=== PATIENT | female | born 1985 | race American Indian/Alaskan Native ===

== ENCOUNTER 2017-07-30 19:47 | Inpatient (IN) | payer SELFPAY ==
[2017-07-30] MEDS ORDERED: TYLENOL PO ONE (20:02)
[2017-07-30 20:16] LABS: Basophils % (Auto) 0.2 % (0.0-1.8); Eosinophils # (Auto) 0.1 K/mm3 (0.0-0.4); Eosinophils % (Auto) 0.4 % (0.0-4.3); Hematocrit 31.1 % (30.3-42.9); Hemoglobin 9.5 gm/dl (10.1-14.3); Lymphocytes # (Auto) 3.4 K/mm3 (1.2-5.4); Lymphocytes % (Auto) 17.3 % (13.4-35.0); Mean Corpuscular HGB Conc 31 % (30-34); Monocytes # (Auto) 1.7 K/mm3 (0.0-0.8); Monocytes % (Auto) 8.7 % (0.0-7.3); Platelet Count 428 K/mm3 (140-440); Red Blood Count 4.48 M/mm3 (3.65-5.03); Red Cell Distribution Width 16.9 % (13.2-15.2)
[2017-07-30 20:18] LABS: Mean Corpuscular Hemoglobin 21 pg (28-32); Mean Corpuscular Volume 70 fl (79-97)
[2017-07-30 20:29] LABS: Alanine Aminotransferase 51 units/L (7-56); Albumin 3.5 g/dL (3.9-5); BUN/Creatinine Ratio 14; Blood Urea Nitrogen 7 mg/dL (7-17); Calcium 8.5 mg/dL (8.4-10.2); Hemolysis Index 0
[2017-07-30] MEDS ORDERED: MORPHINE IV ONE (23:16)
[2017-07-30] MEDS ORDERED: NACL 0.9% 1000 ML 1,000 ML IV ONE (23:16)
[2017-07-30] MEDS ORDERED: CLEOCIN 900 MG/50 mL 900 MG/50 ML BAG IV ONE (23:16)
[2017-07-30] MEDS ORDERED: ZOFRAN IV ONE (23:16)
[2017-07-30] MEDS ORDERED: CLEOCIN 600 MG/50 mL 600 MG/50 ML BAG IV ONE (23:23)
[2017-07-30] MEDS ORDERED: TORADOL IV ONE (23:23)
[2017-07-30] MEDS ORDERED: ZOFRAN ODT PO PRN (23:30)
[2017-07-30] MEDS ORDERED: REGLAN ONE (23:32)
[2017-07-30] MEDS ORDERED: ZOFRAN ODT PO ONE (23:32)
[2017-07-30] MEDS ORDERED: ZOFRAN ODT ONE (23:40)
--- NOTE | 2017-07-31 00:09 | Emergency Department Report ---
ED Abdominal Pain HPI - General Chief Complaint: Abdominal Pain Stated Complaint: ABDOMINAL PAIN/ Source: patient Mode of arrival: Ambulatory Limitations: No Limitations - History of Present Illness Initial Comments: 32-year-old female with no past medical history per previous surgical history including 5 years ago, tubal ligation, and apocrine gland surgery secondary to recurring abscesses presents to the hospital complaining of lower abdominal pain 3 days. Pain worse in the right lower quadrant. Pain is constant, 6/10 intensity and worse with palpation. Patient presents with fever and EEG but denies feeling feverish at home. Good appetite reported without nausea, vomiting, diarrhea. Denies dysuria but having urinary frequency. Severity scale (0 -10): 7 - Related Data Allergies Allergy/AdvReac Type Severity Reaction Status Date / Time Penicillins Allergy Itching Verified 07/31/17 01:49 ED Review of Systems ROS: Stated complaint: ABDOMINAL PAIN/ Other details as noted in HPI Comment: All other systems reviewed and negative Other: Constitutional: as per HPI Eyes: No eye pain visual changes or discharge ENT: No ear pain or throat pain Neck: Denies pain Respiratory: Denies cough wheezing shortness of breath Cardiovascular: Denies chest pain, palpitations, syncope GI: As per HPI : Denies dysuria Musculoskeletal: Denies back pain, joint swelling Skin: Lower abdominal wall swelling Neurologic: Denies headache, numbness, weakness Psychiatric: Denies suicidal ideation, hallucinations ED Past Medical Hx - Past Medical History Previous Medical History?: No - Surgical History Additional Surgical History: c section. Tubal ligation - Social History Smoking Status: Never Smoker Substance Use Type: None ED Physical Exam - General Limitations: No Limitations - Other Other exam information: General: No limitations, patient is alert in no acute distress Head exam: Atraumatic, normocephalic Eyes exam: Normal appearance, pupils equal reactive to light, extraocular movements intact ENT: Moist mucous membrane, normal oropharynx Neck exam: Normal inspection, full range of motion, no meningismus nontender Respiratory exam: Clear to auscultation bilateral, no wheezes, rales, crackles Cardiovascular: Tachycardic regular rhythm Abdomen: Soft, nondistended, suprapubic area erythema, warmth, and subcutaneous edema greatest on the right. Tenderness to palpation. No signs of drainage Extremity: Full range of motion normal inspection no deformity Back: Normal Inspection, full range of motion, no tenderness Neurologic: Alert, oriented x3, cranial nerves intact, no motor or sensory deficit Psychiatric: normal affect, normal mood Skin: See abdominal exam ED Course Vital Signs 07/30/17 07/31/17 19:56 00:00 Temperature 100.8 F H 98.3 F Pulse Rate 135 H 78 Respiratory 18 Rate Blood Pressure 138/90 Blood Pressure 132/74 [Left] O2 Sat by Pulse 98 99 Oximetry - Reevaluation(s) Reevaluation #1: 07/31/17 01:39 Heart rate improves with fever reduction - Consultations Consultation #1: 07/31/17 01:20 case d/w Dr Correa surgery. aggrees to admit and preform procedure in am ED Medical Decision Making - Lab Data Result diagrams: 07/30/17 20:03 07/30/17 20:03 Lab Results 07/30/17 07/30/17 07/30/17 Range/Units 20:03 20:03 23:26 WBC 19.4 H (4.5-11.0) K/mm3 RBC 4.48 (3.65-5.03) M/mm3 Hgb 9.5 L (10.1-14.3) gm/dl Hct 31.1 (30.3-42.9) % MCV 70 L (79-97) fl MCH 21 L (28-32) pg MCHC 31 (30-34) % RDW 16.9 H (13.2-15.2) % Plt Count 428 (140-440) K/mm3 Lymph % (Auto) 17.3 (13.4-35.0) % [place] % (Auto) 8.7 H (0.0-7.3) % Eos % (Auto) 0.4 (0.0-4.3) % Baso % (Auto) 0.2 (0.0-1.8) % Lymph # 3.4 (1.2-5.4) K/mm3 [place] # 1.7 H (0.0-0.8) K/mm3 Eos # 0.1 (0.0-0.4) K/mm3 Baso # 0.0 (0.0-0.1) K/mm3 Seg Neutrophils % 73.4 H (40.0-70.0) % Seg Neutrophils # 14.2 H (1.8-7.7) K/mm3 VBG pH (7.320-7.420) Sodium 137 (137-145) mmol/L Potassium 4.0 (3.6-5.0) mmol/L Chloride 98.8 (98-107) mmol/L Carbon Dioxide 25 (22-30) mmol/L Anion Gap 17 mmol/L BUN 7 (7-17) mg/dL Creatinine 0.5 L (0.7-1.2) mg/dL Estimated GFR > 60 ml/min BUN/Creatinine Ratio 14 % Glucose 94 (65-100) mg/dL Lactic Acid (0.7-2.0) mmol/L Calcium 8.5 (8.4-10.2) mg/dL Total Bilirubin 0.20 (0.1-1.2) mg/dL AST 46 H (5-40) units/L ALT 51 (7-56) units/L Alkaline Phosphatase 97 (35-129) units/L Total Protein 8.4 H (6.3-8.2) g/dL Albumin 3.5 L (3.9-5) g/dL Albumin/Globulin Ratio 0.7 % HCG, Qual Negative (Negative) Urine Color (Yellow) Urine Turbidity (Clear) Urine pH (5.0-7.0) Ur Specific [place] (1.003-1.030) Urine Protein (Negative) mg/dL Urine Glucose (UA) (Negative) mg/dL Urine Ketones (Negative) mg/dL Urine Blood (Negative) Urine Nitrite (Negative) Urine Bilirubin (Negative) Urine Urobilinogen (<2.0) mg/dL Ur Leukocyte Esterase (Negative) Urine WBC (Auto) (0.0-6.0) /HPF Urine RBC (Auto) (0.0-6.0) /HPF U Epithel Cells (Auto) (0-13.0) /HPF Urine Mucus /HPF 07/30/17 07/30/17 07/31/17 Range/Units 23:26 23:26 00:00 WBC (4.5-11.0) K/mm3 RBC (3.65-5.03) M/mm3 Hgb (10.1-14.3) gm/dl Hct (30.3-42.9) % MCV (79-97) fl MCH (28-32) pg MCHC (30-34) % RDW (13.2-15.2) % Plt Count (140-440) K/mm3 Lymph % (Auto) (13.4-35.0) % [place] % (Auto) (0.0-7.3) % Eos % (Auto) (0.0-4.3) % Baso % (Auto) (0.0-1.8) % Lymph # (1.2-5.4) K/mm3 [place] # (0.0-0.8) K/mm3 Eos # (0.0-0.4) K/mm3 Baso # (0.0-0.1) K/mm3 Seg Neutrophils % (40.0-70.0) % Seg Neutrophils # (1.8-7.7) K/mm3 VBG pH 7.450 H (7.320-7.420) Sodium (137-145) mmol/L Potassium (3.6-5.0) mmol/L Chloride (98-107) mmol/L Carbon Dioxide (22-30) mmol/L Anion Gap mmol/L BUN (7-17) mg/dL Creatinine (0.7-1.2) mg/dL Estimated GFR ml/min BUN/Creatinine Ratio % Glucose (65-100) mg/dL Lactic Acid 1.60 (0.7-2.0) mmol/L Calcium (8.4-10.2) mg/dL Total Bilirubin (0.1-1.2) mg/dL AST (5-40) units/L ALT (7-56) units/L Alkaline Phosphatase (35-129) units/L Total Protein (6.3-8.2) g/dL Albumin (3.9-5) g/dL Albumin/Globulin Ratio % HCG, Qual (Negative) Urine Color Yellow (Yellow) Urine Turbidity Hazy (Clear) Urine pH 5.0 (5.0-7.0) Ur Specific [place] 1.035 H (1.003-1.030) Urine Protein 100 mg/dl (Negative) mg/dL Urine Glucose (UA) Neg (Negative) mg/dL Urine Ketones Tr (Negative) mg/dL Urine Blood Lg (Negative) Urine Nitrite Neg (Negative) Urine Bilirubin Neg (Negative) Urine Urobilinogen 2.0 (<2.0) mg/dL Ur Leukocyte Esterase Mod (Negative) Urine WBC (Auto) 37.0 H (0.0-6.0) /HPF Urine RBC (Auto) 106.0 (0.0-6.0) /HPF U Epithel Cells (Auto) 5.0 (0-13.0) /HPF Urine Mucus 1+ /HPF - Radiology Data Radiology results: report reviewed Read by radiologist CT abdomen and pelvis IV contrast: lower anterior right abdominal wall subcutaneous soft tissue fluid collection measuring up to 9 cm x 4.6 by 4 centimeter. May represent a developing abscess. Other differential includes irregular hematoma and seroma. Minimal surrounding cellulitis and soft tissues in the anterior abdominal wall. Multiple enlarged lymph nodes in the groin region bilaterally. Intestinal and urinary tract unremarkable - Medical Decision Making Abdominal wall abscess that needs surgical drainage. Clindamycin initiated Significant leukocytosis but no signs of septic shock UA has blood and white cells, patient is currently on her menstrual cycle Dr correa to admit admit orders placed - Differential Diagnosis cellulitis, abscess, appendicitis, UTI Critical Care Time: No Critical care attestation.: If time is entered above; I have spent that time in minutes in the direct care of this critically ill patient, excluding procedure time. ED Disposition Clinical Impression: Abdominal wall abscess, Leukocytosis, Anemia Disposition: OP ADMIT IP TO THIS HOSP Is pt being admited?: Yes Condition: Stable Time of Disposition: 01:42 (Dr Correa/surgery)
[2017-07-31 00:37] LABS: Bilirubin,Urine NEG (Negative); Blood,Urine LG (Negative); Color,Urine Yellow (Yellow); Mucus,Urine 1+ /HPF
--- NOTE | 2017-07-31 01:03 | Cat Scan Report ---
FINAL REPORT PROCEDURE: CT ABDOMEN PELVIS W CON TECHNIQUE: Computerized axial tomography of the abdomen and pelvis was performed after the IV injection of iodinated nonionic contrast. HISTORY: rlq pain, ? abd wall cellulitis COMPARISON: No prior studies are available for comparison. FINDINGS: Visualized lower thorax: No significant abnormality. Liver: Normal size and attenuation. Spleen: Normal size and attenuation. Gallbladder and biliary system: Normal. Pancreas: Normal. Adrenals: Normal. Kidneys: Normal. GI tract: No obstruction. No ileus or enteritis. The cecum, appendix and colon are normal. Moderate fecal debris in the colon.. Lymph nodes and mesentery: There are multiple enlarged lymph nodes identified in the groin region bilaterally.. Vasculature: Normal. Bladder: Normal. Reproductive organs: Normal. Peritoneum: No free fluid. Musculoskeletal structures: No significant abnormality. Other: Within the anterior abdominal wall subcutaneous soft tissues there is a fluid collection in the lower right pelvic region, this measures 4.6 x 9 by 4 centimeters. There is stranding of the subcutaneous fat surrounding this region. A developing abscess is suspected. Irregular hematoma and seroma are also within the differential. Minimal surrounding cellulitis in the soft tissues... IMPRESSION: Lower anterior right abdominal wall subcutaneous soft tissue fluid collection measuring up to 9 centimeters. This may represent a developing abscess. Irregular hematoma and seroma are also within the differential. There is some minimal surrounding cellulitis in the soft tissues of this region of the anterior abdominal wall. There is no evidence of intestinal or urinary tract obstruction. No ileus or enteritis. Multiple enlarged lymph nodes in the groin region bilaterally.
[2017-07-31] MEDS ORDERED: MORPHINE IV PRN (01:49)
[2017-07-31] MEDS: NACL 0.9% 1000 ML 1,000 ML IV SCH ×2 (04:20→11:48)
[2017-07-31] MEDS: CLEOCIN 600 MG/50 mL 600 MG/50 ML BAG IV SCH ×2 (06:03→14:18)
[2017-07-31] MEDS: LOVENOX SUB-Q SCH (09:30)
[2017-07-31] MEDS ORDERED: LOVENOX SUB-Q SCH (10:00)
--- NOTE | 2017-07-31 10:32 | History and Physical Report ---
History of Present Illness Date of examination: 07/31/17 Date of admission: 07/31/17 01:42 Chief complaint: Abdominal pain History of present illness: 32-year-old female with no significant past medical history presented to the emergency room with complaints of right lower abdominal pain. The pain started 4 days ago. The patient states she noted some swelling in the right lower abdomen and this slowly became worse, tender, and red. The pain is sharp and does not radiate. Using a heating pad helps alleviate the pain mildly. The patient states she's had symptoms like this in the past with superficial abscesses that have required drainage. She believes this may have been caused by working out at the gym and wearing tight elastic pants. She denies drainage from the area. Although she denies fevers or chills at home, she did have a temperature of 100.8 in the emergency room. She denies nausea, vomiting, constipation, diarrhea. Past History Past Medical History: other (subcutaneous abscesses) Past Surgical History: Other (, drainage of subcutaneous abscess) Social history: alcohol abuse (occasional). denies: smoking, prescription drug abuse Family history: CAD, cancer Medications and Allergies Allergies Allergy/AdvReac Type Severity Reaction Status Date / Time Penicillins Allergy Itching Verified 07/31/17 01:49 Active Meds: Active Medications Enoxaparin Sodium (Lovenox) 40 mg SUB-Q QDAY@1000 LANRE Last Admin: 07/31/17 09:30 Dose: 40 mg Clindamycin HCl (Cleocin 600 Mg/50 Ml) 600 mg in 50 mls @ 100 mls/hr IV Q8HR LANRE; Protocol Last Admin: 07/31/17 06:03 Dose: 100 mls/hr Sodium Chloride (Nacl 0.9% 1000 Ml) 1,000 mls @ 125 mls/hr IV DIRECT LANRE Last Admin: 07/31/17 04:20 Dose: 125 mls/hr Morphine Sulfate (Morphine) 4 mg IV Q4HR PRN PRN Reason: Pain Last Admin: 07/31/17 09:31 Dose: 4 mg Review of Systems All systems: negative (10 point review of systems was performed and negative except for above listed in HPI) Exam Vital Signs Temp Pulse BP Pulse Ox 100.8 F H 135 H 138/90 98 07/30/17 19:56 07/30/17 19:56 07/30/17 19:56 07/30/17 19:56 Narrative exam: General: Awake, alert, oriented 3. No apparent distress ENT: No scleral icterus or conjunctival pallor CV: S1, S2 present. No murmurs, rubs, gallops Respiratory: Clear to auscultation bilaterally, no wheezes, rales, rhonchi Abdomen: Soft, nondistended, cellulitis and induration of skin and right lower abdomen. There is fluctuance. Tender to palpation. No drainage. Extremities: No clubbing, cyanosis, edema Results - Labs 07/30/17 20:03 07/30/17 20:03 Abnormal lab results 07/30/17 07/30/17 07/30/17 Range/Units 20:03 20:03 23:26 WBC 19.4 H (4.5-11.0) K/mm3 Hgb 9.5 L (10.1-14.3) gm/dl MCV 70 L (79-97) fl MCH 21 L (28-32) pg RDW 16.9 H (13.2-15.2) % [place] % (Auto) 8.7 H (0.0-7.3) % [place] # 1.7 H (0.0-0.8) K/mm3 Seg Neutrophils % 73.4 H (40.0-70.0) % Seg Neutrophils # 14.2 H (1.8-7.7) K/mm3 VBG pH 7.450 H (7.320-7.420) Creatinine 0.5 L (0.7-1.2) mg/dL AST 46 H (5-40) units/L Total Protein 8.4 H (6.3-8.2) g/dL Albumin 3.5 L (3.9-5) g/dL Ur Specific [place] (1.003-1.030) Urine WBC (Auto) (0.0-6.0) /HPF 07/31/17 Range/Units 00:00 WBC (4.5-11.0) K/mm3 Hgb (10.1-14.3) gm/dl MCV (79-97) fl MCH (28-32) pg RDW (13.2-15.2) % [place] % (Auto) (0.0-7.3) % [place] # (0.0-0.8) K/mm3 Seg Neutrophils % (40.0-70.0) % Seg Neutrophils # (1.8-7.7) K/mm3 VBG pH (7.320-7.420) Creatinine (0.7-1.2) mg/dL AST (5-40) units/L Total Protein (6.3-8.2) g/dL Albumin (3.9-5) g/dL Ur Specific [place] 1.035 H (1.003-1.030) Urine WBC (Auto) 37.0 H (0.0-6.0) /HPF Diabetes panel 07/30/17 Range/Units 20:03 Sodium 137 (137-145) mmol/L Potassium 4.0 (3.6-5.0) mmol/L Chloride 98.8 (98-107) mmol/L Carbon Dioxide 25 (22-30) mmol/L BUN 7 (7-17) mg/dL Creatinine 0.5 L (0.7-1.2) mg/dL Glucose 94 (65-100) mg/dL Calcium 8.5 (8.4-10.2) mg/dL AST 46 H (5-40) units/L ALT 51 (7-56) units/L Alkaline Phosphatase 97 (35-129) units/L Total Protein 8.4 H (6.3-8.2) g/dL Albumin 3.5 L (3.9-5) g/dL Calcium panel 07/30/17 Range/Units 20:03 Calcium 8.5 (8.4-10.2) mg/dL Albumin 3.5 L (3.9-5) g/dL Pituitary panel 07/30/17 Range/Units 20:03 Sodium 137 (137-145) mmol/L Potassium 4.0 (3.6-5.0) mmol/L Chloride 98.8 (98-107) mmol/L Carbon Dioxide 25 (22-30) mmol/L BUN 7 (7-17) mg/dL Creatinine 0.5 L (0.7-1.2) mg/dL Glucose 94 (65-100) mg/dL Calcium 8.5 (8.4-10.2) mg/dL Adrenal panel 07/30/17 Range/Units 20:03 Sodium 137 (137-145) mmol/L Potassium 4.0 (3.6-5.0) mmol/L Chloride 98.8 (98-107) mmol/L Carbon Dioxide 25 (22-30) mmol/L BUN 7 (7-17) mg/dL Creatinine 0.5 L (0.7-1.2) mg/dL Glucose 94 (65-100) mg/dL Calcium 8.5 (8.4-10.2) mg/dL Total Bilirubin 0.20 (0.1-1.2) mg/dL AST 46 H (5-40) units/L ALT 51 (7-56) units/L Alkaline Phosphatase 97 (35-129) units/L Total Protein 8.4 H (6.3-8.2) g/dL Albumin 3.5 L (3.9-5) g/dL - Imaging CT scan - abdomen: report reviewed, image reviewed CT scan - pelvis: report reviewed, image reviewed Assessment and Plan 32-year-old female with 1. Abdominal wall abscess 2. Sepsis secondary to #1 Plan: 1. NPO 2. IVF 3. IV abx - started on clinda in ER 4. PRN Pain control 5. DVT ppx 6. OR today for incision and drainage. All risks and benefits, alternatives to surgery discussed and questions answered. Consent signed and placed on chart.
[2017-07-31] MEDS ORDERED: MARCAINE 0.5% INFILTRATI ONE ×2 (11:18→12:20)
[2017-07-31] MEDS ORDERED: DIPRIVAN 10 MG/ML IV ONE ×2 (11:31→12:21)
[2017-07-31] MEDS ORDERED: XYLOCAINE MPF 2% ONE (11:34)
[2017-07-31] MEDS ORDERED: DILAUDID ONE (11:34)
[2017-07-31] MEDS ORDERED: VERSED ONE (11:35)
--- NOTE | 2017-07-31 11:40 | Anesthesia Day of Surgery ---
Anesthesia Day of Surgery - Day of Surgery Patient Examined: Yes Patient H&P Reviewed: Yes Patient is NPO: Yes
--- NOTE | 2017-07-31 11:40 | Anesthesia Consultation ---
Anesthesia Consult and Med Hx - Airway Anesthetic Teeth Evaluation: Good ROM Head & Neck: Adequate Mental/Hyoid Distance: Adequate Mallampati Class: Class II Intubation Access Assessment: Good - Pulmonary Exam CTA: Yes - Cardiac Exam Cardiac Exam: RRR - Pre-Operative Health Status ASA Pre-Surgery Classification: ASA1 Proposed Anesthetic Plan: MAC - Pulmonary Hx Asthma: No COPD: No Hx Pneumonia: No - Endocrine Hx End Stage Renal Disease: No
[2017-07-31] MEDS ORDERED: ZOFRAN IV PRN (11:41)
[2017-07-31] MEDS ORDERED: NACL 0.9% IR ONE (12:20)
--- NOTE | 2017-07-31 12:48 | Operative Report ---
Operative Report Operative Report: Date of surgery: 07/31/17 Preoperative diagnosis: abdominal wall abscess Postoperative diagnosis: same as above Procedure: incision and drainage of abdominal wall abscess Surgeon: Kirt Correa DO Anesthesia: MAC, local Findings: large amount of pus in superficial abdominal wall abscess. Outer wound measures 2.5 (l)x1.5 (w)x 1.5 (d) cm. Abscess cavity measures 8cm x 4 cm Specimen: cultures EBL: 5cc Complications: none Disposition: stable to PACU HPI and indication: 32 yo F with hx of hidradenitis presented to hospital with lower abdominal wall pain, redness, and swelling. She was found to have an elevated WBC and large abscess on CT A/P. Drainage of abscess of recommended and surgical consent obtained. All risks and benefits were discussed and questions answered. Procedure in detail: Patient was identified in the preoperative area and taken back to the operating room and placed on the operating room table in supine position. After the patient was moved onto the operating room table, there was an area of spontaneous drainage from the abscess at the inferior aspect under the pannus. After anesthesia was induced, the abdomen was prepped and draped in usual sterile fashion and a timeout was performed. Local anesthetic, 0.5% marcaine was infiltrated into the skin in the area of spontaneous drainage inferior aspect of the pannus. This opening was extended cephalad using an 11 blade and there was a large amount of purulent drainage expressed. Cultures were obtained. The abscess cavity was probed with a gloved finger to break up all loculations. Once this abscess cavity was adequately drained, it was measured. The abscess cavity measured 8 cm in width 4 cm in length, 1.5 cm deep. The outer wound measured 2.5 (length) 1.5 (width) 1.5 (Depth). The wound was irrigated copiously with saline solution and hemostasis achieved. The wound was packed with 2 inch iodoform packing, covered with 4 x 4 fluff gauze, ABD, Medipore tape. At the end of the case, all instrument, sharp, sponge counts were correct 2. The patient was awoken from anesthesia and taken to PACU in stable condition.
[2017-07-31] MEDS: DILAUDID IV PRN ×2 (12:55→13:05)
[2017-07-31] MEDS: ULTRAM PO PRN ×2 (14:17→18:32)
--- NOTE | 2017-07-31 17:38 | Post Anesthesia Evaluation ---
- Post Anesthesia Evaluation Patient Participated: Yes Airway Patent: Yes Stable Respiratory Function: Yes Nausea/Vomiting: No Temp > 96.8F: Yes Pain Manageable: Yes Adequeate Hydration: Yes Anesthesia Complications: No Block Receding Appropriately: Not Applicable
[2017-07-31] MEDS ORDERED: TYLENOL PO PRN (22:01)
[2017-08-01] MEDS: DILAUDID IV PRN ×2 (00:09→11:05)
[2017-08-01] MEDS: CLEOCIN 600 MG/50 mL 600 MG/50 ML BAG IV SCH ×3 (00:12→13:44)
[2017-08-01] MEDS: LOVENOX SUB-Q SCH (10:14)
[2017-08-01 12:00] LABS: Basophils # (Auto) 0.1 K/mm3 (0.0-0.1); Basophils % (Auto) 0.6 % (0.0-1.8); Eosinophils # (Auto) 0.2 K/mm3 (0.0-0.4); Eosinophils % (Auto) 1.7 % (0.0-4.3); Hemoglobin 8.4 gm/dl (10.1-14.3); Lymphocytes % (Auto) 20.1 % (13.4-35.0); Mean Corpuscular HGB Conc 30 % (30-34); Monocytes # (Auto) 1.2 K/mm3 (0.0-0.8); Monocytes % (Auto) 7.9 % (0.0-7.3); Platelet Count 373 K/mm3 (140-440); Red Blood Count 4.02 M/mm3 (3.65-5.03)
[2017-08-01 12:05] LABS: Mean Corpuscular Hemoglobin 21 pg (28-32); Mean Corpuscular Volume 70 fl (79-97)
[2017-08-01] MEDS: LACTINEX PO SCH ×2 (13:45→21:30)
[2017-08-01] MEDS ORDERED: DILAUDID IV ONE (14:00)
--- NOTE | 2017-08-01 15:50 | Progress Note ---
Assessment and Plan 32 yo F s/p incision and drainage of abdominal wall abscess POD 1 1. abd wall abscess 2. hidradenitis of mons pubis Plan: 1. prelim cultures reviewed and discussed with Dr. Woody (ID) - dc clinda, start levaquin, vanco, flagyl 2. ID consult 3. reg diet 4. pain control PRN 5. local wound care daily 6. warm compress to mons 7. OOB/ambulate Subjective Date of service: 08/01/17 Narrative: Pt seen and examined. +fever overnight. No other complaints. Pain is controlled. Tolerating diet, no n/v, cp, sob. Objective Vital Signs - 12hr 08/01/17 06:09 Temperature 98.6 F Pulse Rate 103 H Respiratory 18 Rate Blood Pressure 118/79 O2 Sat by Pulse 98 Oximetry - General physical appearance Narrative Exam: Gen: AAOx3. NAD CV: s1, S2+ Resp: even and unlabored Abd: soft, ND, TTP in lower abdomen over wound. Cellulitis and induration have improved. Dressing removed and one piece of iodoform packing removed . Wound is clean without additional purulent drainage or fluctuance. An area of skin breakdown over abscess cavity lateral to surgical wound measures 1 cm, full thickness. Wound cleansed and packed with 1/2 inch iodoform. Covered with 4x4 gauze and coversite dressing. : Hidradenitis of mons - +purulent drainage from small openings in the skin of the mons pubis. - Labs 08/01/17 11:46 07/30/17 20:03
[2017-08-01] MEDS ORDERED: VANCOMYCIN PHARMACY TO DOSE IV SCH (16:00)
[2017-08-01] MEDS ORDERED: VANCOMYCIN/NS 1 GM/250 ML 1 GM/250 ML BAG IV SCH (16:00)
[2017-08-01] MEDS ORDERED: VANCOMYCIN 2,000 MG in NACL 0.9% 500 ML 500 ML IV ONE (17:00)
[2017-08-01] MEDS: LEVAQUIN 500MG/100ML 500 MG/100 ML BAG IV SCH (21:29)
[2017-08-01] MEDS: FLAGYL 500 MG/100 ML 500 MG/100 ML BAG IV SCH (22:29)
[2017-08-01] MEDS: ULTRAM PO PRN (23:18)
[2017-08-02] MEDS: VANCOMYCIN 1,500 MG in NACL 0.9% 500 ML 500 ML IV SCH ×2 (04:08→18:39)
[2017-08-02 06:03] LABS: Basophils # (Auto) 0.1 K/mm3 (0.0-0.1); Basophils % (Auto) 0.5 % (0.0-1.8); Eosinophils # (Auto) 0.3 K/mm3 (0.0-0.4); Eosinophils % (Auto) 2.7 % (0.0-4.3); Hematocrit 26.8 % (30.3-42.9); Lymphocytes # (Auto) 2.4 K/mm3 (1.2-5.4); Lymphocytes % (Auto) 21.6 % (13.4-35.0); Mean Corpuscular HGB Conc 30 % (30-34); Mean Corpuscular Volume 69 fl (79-97); Monocytes # (Auto) 0.9 K/mm3 (0.0-0.8); Monocytes % (Auto) 8.3 % (0.0-7.3); Platelet Count 397 K/mm3 (140-440); Red Blood Count 3.86 M/mm3 (3.65-5.03)
[2017-08-02 06:04] LABS: Mean Corpuscular Hemoglobin 21 pg (28-32)
[2017-08-02] MEDS: FLAGYL 500 MG/100 ML 500 MG/100 ML BAG IV SCH ×3 (06:28→21:01)
[2017-08-02] MEDS: LOVENOX SUB-Q SCH (09:00)
[2017-08-02] MEDS: LACTINEX PO SCH ×2 (09:00→21:01)
[2017-08-02] MEDS ORDERED: DILAUDID IV PRN (11:45)
--- NOTE | 2017-08-02 13:06 | Progress Note ---
Assessment and Plan 32 yo F s/p incision and drainage of abdominal wall abscess POD 2 1. abd wall abscess 2. hidradenitis of mons pubis Plan: 1. cx - beta hemolytic strep - c/w juliann otero flagyl 2. ID consult pending, D/W Dr. Woody - will see patient Thursday 08/03 3. reg diet 4. pain control PRN 5. local wound care daily 6. warm compress to mons, hibiclene shower ordered 7. OOB/ambulate 8. DVT ppx 9. dc planning tomorrow with oral abx Subjective Date of service: 08/02/17 Narrative: Pt seen and examined. c/o pain near surgical wound but controlled with pain meds. No f/c. Objective Vital Signs - 12hr 08/02/17 08:29 Temperature 98.6 F Pulse Rate 98 H Respiratory 18 Rate Blood Pressure 113/74 O2 Sat by Pulse 96 Oximetry - General physical appearance Narrative Exam: Gen: AAOx3. NAD CV: s1, S2+ Resp: even and unlabored Abd: soft, ND, +TTP near surgical wound lower abdomen. Erythema has significantly improved. Mild surrounding induration, no fluctuance. All packing removed. Two openings in wound, wound base is clean and red, no additional drainage. Packed with one piece of 1/2 inch iodoform packing, covered with coversite dressing. : mons induration improving, +purulent drainage from small openings - Labs 08/02/17 05:12 07/30/17 20:03
[2017-08-02] MEDS: LEVAQUIN 500MG/100ML 500 MG/100 ML BAG IV SCH (21:01)
[2017-08-03] MEDS: VANCOMYCIN 1,500 MG in NACL 0.9% 500 ML 500 ML IV SCH (06:00)
[2017-08-03] MEDS: FLAGYL 500 MG/100 ML 500 MG/100 ML BAG IV SCH (06:04)
--- NOTE | 2017-08-03 08:01 | Consultation ---
History of Present Illness - Reason for Consult Consult date: 08/03/17 abdominal wall abscess Requesting physician: ANG YAN - History of Present Illness 32 years old female with history of hidradenitis suppurativa mainly at bilateral axilla, groins and pubic area; admitted on 07/30/17 due to right lower quadrant pain and edema for a week. She was not able to walk due to pain. She noticed some fever 24 hours before admission. Of note, patient has history of multiple upper quadrant hidradenitis flare mainly in bilateral axilla and pubic area. She has never had grafting. She denies history of previous cutaneous MRSA infection. In the emergency room, initial temperature was 100.8, heart rate 135, respiration 20, O2 sat 98, blood pressure 130/90. Initial white count 19. Hemoglobin 9.5. Urinalysis was positive with 37 white blood cells and moderate leukocyte esterase. CT of the abdomen show a nice centimeters fluid collection in the abdominal wall in the right lower quadrant. Microbiology: Blood cultures: 07/30 ngtd Wound cultures: 07/30 Beta hem Strep C Current Antimicrobials: Levaquin 08/01 Vancomycin 08/01 Metronidazole 08/01 Previous Antimicrobials: Past History Past Medical History: other (subcutaneous abscesses, hidradenitis suppurativa) Past Surgical History: Other (, drainage of subcutaneous abscess) Social history: alcohol abuse (occasional). denies: smoking, prescription drug abuse Family history: CAD, cancer Medications and Allergies Allergies Allergy/AdvReac Type Severity Reaction Status Date / Time Penicillins Allergy Itching Verified 07/31/17 01:49 Active Meds: Active Medications Acetaminophen (Tylenol) 650 mg PO Q4H PRN PRN Reason: Fever Last Admin: 08/01/17 00:07 Dose: 650 mg Enoxaparin Sodium (Lovenox) 40 mg SUB-Q QDAY@1000 [facility] Last Admin: 08/02/17 09:00 Dose: 40 mg Hydromorphone HCl (Dilaudid) 0.5 mg IV DAILY PRN PRN Reason: Pain , Severe (7-10) Last Admin: 08/02/17 12:06 Dose: 0.5 mg Levofloxacin/Dextrose (Levaquin 500mg/100ml) 500 mg in 100 mls @ 100 mls/hr IV Q24H LANRE; Protocol Last Admin: 08/02/17 21:01 Dose: 100 mls/hr Metronidazole (Flagyl 500 Mg/100 Ml) 500 mg in 100 mls @ 100 mls/hr IV Q8HR [facility] Last Admin: 08/03/17 06:04 Dose: 100 mls/hr Vancomycin HCl 1,500 mg/ (Sodium Chloride) 515 mls @ 333.333 mls/hr IV Q12H [facility] Last Admin: 08/03/17 06:00 Dose: 333.333 mls/hr Lactobacillus Acidophilus (Lactinex) 1 each PO BID [facility] Last Admin: 08/02/17 21:01 Dose: 1 each Ondansetron HCl (Zofran) 4 mg IV ONCE PRN PRN Reason: Nausea And Vomiting Tramadol HCl (Ultram) 50 mg PO Q4H PRN PRN Reason: Pain, Moderate (4-6) Last Admin: 08/01/17 23:18 Dose: 50 mg Vancomycin HCl (Vancomycin Pharmacy To Dose) 1 each IV PKCONSULT [facility]RE; Protocol Review of Systems All systems: negative (as per HPI rest of 10 point review of systems negative) Physical Examination - Physical Exam Narrative exam: General appearance: Alert in NAD, conversant Eyes: anicteric sclerae, moist conjunctivae; no lid-lag; PERRLA HENT: Atraumatic; oropharynx clear Neck: Trachea midline; supple, no thyromegaly or lymphadenopathy Lungs: CTA, with normal respiratory effort and no intercostal retractions CV: RRR, no murmurs Abdomen: Soft, RLQ with surgical wound covered with dressings Extremities: No peripheral edema or extremity lymphadenopathy Skin: left axilla and honey groin nodular rash with serous drainage Psych: Appropriate affect, alert and oriented to person, place and time. Neuro: alert and oriented x 3. Moving all extermities Lines: No CVL / PICC - Constitutional Vitals: Vital Signs Temp Pulse Resp BP Pulse Ox 99.6 F 89 16 112/72 95 08/03/17 07:23 08/03/17 07:23 08/03/17 07:23 08/03/17 07:23 08/03/17 07:23 Temperature -Last 24 Hours Temperature 99.6 F Temperature 100.1 F Temperature 100.1 F Temperature 99.1 F Temperature 98.6 F Results - Labs CBC & Chem 7: 08/02/17 05:12 07/30/17 20:03 Assessment and Plan Assessment: 1) Sepsis: Present on admission, manifested by fever, tachycardia, leukocytosis. Etiology most likely RLQ abdominal wall abscess +/- UTI. 2) RLQ abdominal wall abscess in the setting of hidradenitis: -CT of the abdomen show a nice centimeters fluid collection in the abdominal wall in the right lower quadrant. -S/P OR I+D on 07/31 - findings: large amount of pus -Cultures + Beta hem Strep C 3) UTI: Non-complicated. 4) History of hidradenitis suppurativa: mainly at bilateral axilla, groins and pubic area, currently with active lesions on left axilla and honey groins. 5) Penicillin allergy 6) Anemia Plan: -stop flagyl and vancomycin -continue levaquin -add doxycycline (for antibacterial and antiinflammatory efects on patients with hidradenitis -monitor fever -plastic surgery referral as an outpatient for evaluation of hidradenitis -upon discharge will do clindamycin 300 mg po TID and doxycycline 100 mg po q12h total 10 days until 08/09 Thank you for your consultation, will follow up with you. Autumn Constantino MD Infectious Diseases Specialist [facility] ([facility] M [phone] O [phone]
[2017-08-03] MEDS: LACTINEX PO SCH ×2 (09:11→22:19)
[2017-08-03] MEDS: LOVENOX SUB-Q SCH (09:12)
[2017-08-03] MEDS: DOXYCYCLINE HYCLATE 100 MG in NACL 0.9% 250ML 250 ML IV SCH ×2 (09:14→22:20)
--- NOTE | 2017-08-03 14:26 | Progress Note ---
Assessment and Plan 32 yo F s/p incision and drainage of abdominal wall abscess POD 3 1. abd wall abscess 2. hidradenitis of mons pubis Plan: 1. ID recs appreciated 2. reg diet 3. pain control PRN 4. local wound care daily 5. warm compress to mons, hibiclene shower ordered 6. OOB/ambulate 7. DVT ppx 8. monitor for fevers 9. dc planning for tomorrow 08/04 if remains afebrile 10. outpatient referral to plastics Subjective Date of service: 08/03/17 Narrative: Pt seen and examined. No complaints. Pain is controlled. Ambulating. Tmax 100.1 overnight. Objective Vital Signs - 12hr 08/03/17 07:23 Temperature 99.6 F Pulse Rate 89 Respiratory 16 Rate Blood Pressure 112/72 O2 Sat by Pulse 95 Oximetry - General physical appearance Narrative Exam: Gen: AAOx3. NAD CV: s1, s2+ Resp: even and unlabored Abd: soft, ND, lower abdominal incision dressing and one piece of packing removed. Wound base clean and pink, no additional purulent drainage. Packed with 1 piece of 1/2 inch iodoform gauze. Cellulitis resolved, induration markedly improved. Covered with coversite dressing. : minimal purulent drainage expressed from mons. Induration has markedly improved. - Labs 08/02/17 05:12 07/30/17 20:03
[2017-08-03] MEDS: LEVAQUIN PO SCH (14:36)
[2017-08-03] MEDS: ULTRAM PO PRN (22:36)
[2017-08-04 08:32] VITALS: BP 111/67
--- NOTE | 2017-08-04 09:16 | Discharge Summary ---
Providers - Providers Date of Admission: 07/31/17 01:42 Date of discharge: 08/04/17 Attending physician: ANG YAN DO 08/01/17 10:11 Consult to Physician [CONS] Routine Comment: Consulting Provider: BRYANNA OSHEA Physician Instructions: Reason For Exam: abd wall abscess, abx management Primary care physician: KARLIE MCPHERSON Hospitalization Reason for admission: abdominal wall abscess Condition: Stable Pertinent studies: CT A/P Procedures: incision and drainage of abdominal wall abscess Hospital course: 32 yo F presented with c/o abd pain. She was found to have an elevated WBC and CT A/P showed a large abdominal wall abscess. She was taken to the OR for incision and drainage of the abscess and post operative course was uncomplicated. Patient also had a flair of hidradentitis of her mons pubis. She was managed with antibiotics and daily dressing changes. She was discharged to home in stable condition. Disposition: DC- TO HOME OR SELFCARE Time spent for discharge: 30 mins - Discharge Diagnoses (1) Abdominal wall abscess Status: Acute Core Measure Documentation - Palliative Care Palliative Care/ Comfort Measures: Not Applicable - Core Measures Any of the following diagnoses?: none Exam - Physical Exam Narrative exam: Gen: AAOx3. NAD CV: S1, S2+ Resp: No audible wheezes Abd: soft, ND, lower abdominal wound - 1 piece of packing removed. No additional purulent drainage. Covered with clean 4x4 gauze and coversite dressing : Mons induration improving. Less drainage from hidradenitis - Constitutional Vitals: Temp Pulse Resp BP Pulse Ox 98.7 F 71 19 111/67 95 08/04/17 08:07 08/04/17 08:07 08/04/17 08:07 08/04/17 08:07 08/04/17 08:07 Plan Activity: other (do not drive if taking narcotic pain medications) Diet: low fat Wound: other (cleanse wound daily in shower with soap and water, pat dry. Cover with dry dressing. ) Follow up with: KARLIE MCPHEROSN MD [Primary Care Provider] - 3-5 Days ANG YAN DO [Staff Physician] - 7 Days WORK,LESLYE Soriano JR, MD [Staff Physician] - 14 Days Prescriptions: Clindamycin [Clindamycin CAP] 300 mg PO Q8H #18 cap Doxycycline Hyclate [Doxycycline Hyclate TAB] 100 mg PO Q12HR #12 tab traMADol [Ultram 50 MG tab] 50 mg PO Q4H PRN #20 tablet PRN Reason: Pain, Moderate (4-6)
--- NOTE | 2017-08-04 11:26 | Progress Note ---
Assessment and Plan Assessment: 1) Sepsis: resolved. Etiology most likely RLQ abdominal wall abscess +/- UTI. 2) RLQ abdominal wall abscess in the setting of hidradenitis: -CT of the abdomen show a nice centimeters fluid collection in the abdominal wall in the right lower quadrant. -S/P OR I+D on 07/31 - findings: large amount of pus -Cultures + Beta hem Strep C 3) UTI: Non-complicated. 4) History of hidradenitis suppurativa: mainly at bilateral axilla, groins and pubic area, currently with active lesions on left axilla and honey groins. 5) Penicillin allergy 6) Anemia Plan: -plastic surgery referral as an outpatient for evaluation of hidradenitis -upon discharge will do clindamycin 300 mg po TID and doxycycline 100 mg po q12h total 10 days until 08/09 I am signing off Thank you for your consultation, will follow up with you. Autumn Constantino MD Infectious Diseases Specialist [facility] M [phone] O [phone] Subjective Date of service: 08/04/17 Principal diagnosis: abd wall abscess Interval history: Feels better, wants to go home. No fever. Microbiology: Blood cultures: 07/30 ngtd Wound cultures: 07/30 Beta hem Strep C Current Antimicrobials: Doxy Levaquin 08/01 Previous Antimicrobials: Vancomycin 08/01 Metronidazole 08/01 Objective - Exam Narrative Exam: General appearance: Alert in NAD, conversant Eyes: anicteric sclerae, moist conjunctivae; no lid-lag; PERRLA HENT: Atraumatic; oropharynx clear Neck: Trachea midline; supple, no thyromegaly or lymphadenopathy Lungs: CTA, with normal respiratory effort and no intercostal retractions CV: RRR, no murmurs Abdomen: Soft, RLQ with surgical wound covered with dressings Extremities: No peripheral edema or extremity lymphadenopathy Skin: left axilla and honey groin nodular rash with serous drainage Psych: Appropriate affect, alert and oriented to person, place and time. Neuro: alert and oriented x 3. Moving all extermities Lines: No CVL / PICC - Constitutional Vitals: Vital Signs Temp Pulse Resp BP Pulse Ox 98.7 F 71 19 111/67 95 08/04/17 08:07 08/04/17 08:07 08/04/17 08:07 08/04/17 08:07 08/04/17 08:07 Temperature -Last 24 Hours Temperature 98.7 F Temperature 98.6 F Temperature 99.7 F - Labs CBC & Chem 7: 08/02/17 05:12 07/30/17 20:03
[2017-08-04] MEDS: DOXYCYCLINE HYCLATE 100 MG in NACL 0.9% 250ML 250 ML IV SCH (11:35)
[2017-08-04] MEDS: LACTINEX PO SCH (11:36)
[2017-08-04] MEDS: LOVENOX SUB-Q SCH (11:36)
[2017-08-04] MEDS: LEVAQUIN PO SCH (11:36)
[2017-08-04] MEDS ORDERED: VIBRAMYCIN PO SCH (22:00)
== END 2017-08-04 17:00 | disposition home or self-care (01) | DRG 854 ==
LOC: ED 19:47 → 3A 07-31 01:42
PROVIDERS: ADMIT Surgery; ATTEND Surgery
PROC: 0J980ZZ Drainage of Abdomen Subcutaneous Tissue and Fascia, Open Approach (ICD-10-PCS; principal; 2017-07-31)
DX: A41.9 Sepsis, unspecified organism (principal); L02.211 Cutaneous abscess of abdominal wall; N39.0 Urinary tract infection, site not specified; D64.9 Anemia, unspecified; L73.2 Hidradenitis suppurativa
CPT/HCPCS: 36415; 74177; 80053; 81001; 82140; 82805; 84703; 85025; 87040; 87075; 87116; 93005; 93010; 96361; 96365; 96375; J1170; J1650; J1885; J1956; J2250; J2270; J2704; J2765; J3370; J7030; J7040; J7050; Q0162; Q9967